=== PATIENT | female | born 1955 | race Caucasian/White ===

== ENCOUNTER → 2017-04-11 | Outpatient (CLI) | payer OTHER | LOC: BRMIMAGING 07:54 | PROVIDERS: ATTEND Obstetrics & Gynecology Gynecology | DX: Z12.31 Encounter for screening mammogram for malignant neoplasm of breast (principal) | CPT/HCPCS: G0202 ==

== ENCOUNTER → 2017-11-12 | Outpatient (CLI) | payer OTHER | LOC: BRMIMAGING 08:19 | DX: Z13.820 Encounter for screening for osteoporosis (principal); E07.9 Disorder of thyroid, unspecified; N28.9 Disorder of kidney and ureter, unspecified; K76.9 Liver disease, unspecified; Z78.0 Asymptomatic menopausal state ==

== ENCOUNTER → 2018-04-17 | Outpatient (CLI) | payer OTHER | LOC: BRMIMAGING 09:18 | DX: N60.02 Solitary cyst of left breast (principal) | CPT/HCPCS: 76641-PO ==